=== PATIENT | male | born 1985 | race African-American/Black ===

== ENCOUNTER 2017-08-26 08:03 | Emergency (ER) | payer OTHER ==
[2017-08-26] MEDS ORDERED: ACETAMINOPHEN 325 MG TABLET PO ONE (09:42)
[2017-08-26] MEDS ORDERED: PENICILLIN V POTASSIUM 500 MG TABLET PO ONE (09:42)
[2017-08-26] MEDS ORDERED: IBUPROFEN 800 MG TABLET PO ONE (09:42)
--- NOTE | 2017-08-26 09:43 | ER Document Report ---
HPI - HPI Patient complains to provider of: congesiton Onset: Other - 3 days Quality of pain: Achy Pain Level: 4 Context: 32 yo male with sore throat, congestion, mild cough for 3 days. Some fever. No chest pain or sob, no n/v/d. Associated Symptoms: None Exacerbated by: Denies Relieved by: Denies - ROS ROS below otherwise negative: Yes Systems Reviewed and Negative: Yes All other systems reviewed and negative - REPRODUCTIVE Reproductive: DENIES: : Past Medical History - General Information source: Patient - Social History Smoking Status: Never Smoker Frequency of alcohol use: None Drug Abuse: None Lives with: Family Family History: Reviewed & Not Pertinent Neurological Medical History: Reports: Hx Migraine Surgical Hx: Negative - Immunizations Hx Diphtheria, Pertussis, Tetanus Vaccination: Yes Vertical Provider Document - CONSTITUTIONAL Agree With Documented VS: Yes Exam Limitations: No Limitations General Appearance: No Apparent Distress - INFECTION CONTROL TRAVEL OUTSIDE OF THE [place] IN LAST 30 DAYS: No - HEENT HEENT: Normocephalic, Pharyngeal Erythema. negative: Conjuctival Injection, Tympanic Membrane Red - NECK Neck: Supple. negative: Lymphadenopathy-Left, Lymphadenopathy-Right - RESPIRATORY Respiratory: Breath Sounds Normal, No Respiratory Distress O2 Sat by Pulse Oximetry: 97 - CARDIOVASCULAR Cardiovascular: Regular Rate, Regular Rhythm - GI/ABDOMEN Gastrointestinal: Abdomen Soft, Abdomen Non-Tender, No Organomegaly, Normal Bowel Sounds - BACK Back: Normal Inspection - MUSCULOSKELETAL/EXTREMETIES Musculoskeletal/Extremeties: MAEW, FROM - NEURO Level of Consciousness: Awake, Alert - DERM Integumentary: Warm, Dry, No Rash Course - Vital Signs Vital signs: Temp Pulse Resp BP Pulse Ox 99.3 F 92 14 129/75 H 97 08/26/17 08:08 08/26/17 08:08 08/26/17 08:08 08/26/17 08:08 08/26/17 08:08 Discharge - Discharge Clinical Impression: Exudative tonsillitis Condition: Good Disposition: HOME, SELF-CARE Instructions: Acetaminophen, Anti-Inflammatory Medication ([facility]), Penicillin V K ([facility]), Sore Throat ([facility]), Tonsillitis ([facility]) Additional Instructions: Rest Plenty of fluids Motrin and Tylenol for pain Finish the penicillin even though you feel better Return to the emergency room any concerns Prescriptions: Ibuprofen [Motrin 800 mg Tablet] 800 mg PO Q8HP PRN #30 tablet PRN Reason: Penicillin V Potassium [Penicillin Vk 500 mg Tablet] 500 mg PO QID #40 tablet
[2017-08-26 10:20] VITALS: BP 126/79
== END 2017-08-26 10:20 | disposition home or self-care (01) ==
LOC: ER 08:03
DX: J03.90 Acute tonsillitis, unspecified (principal); R09.81 Nasal congestion; J02.9 Acute pharyngitis, unspecified; R05 Cough; R50.9 Fever, unspecified
CPT/HCPCS: 87880; 99283

== ENCOUNTER 2018-09-12 20:59 | Emergency (ER) | payer OTHER ==
[2018-09-12] MEDS ORDERED: IBUPROFEN 600 MG TABLET PO ONE (22:03)
[2018-09-12] MEDS ORDERED: ACETAMINOPHEN 325 MG TABLET PO ONE (22:03)
--- NOTE | 2018-09-12 22:04 | ER Document Report ---
ED General - General Chief Complaint: Ankle Injury Stated Complaint: LEFT ANKLE PAIN Time Seen by Provider: 09/12/18 21:28 Notes: Patient is a 33-year-old male who present to the emerge department with a chief complaint of left ankle and foot pain. He was at [facility] where he rolled his ankle. He was able to walk after the incident, but during dinner he continued to have pain. He said he rolled his ankle medially. He has not taken any medication to help with his symptoms. He denies any prior medical history. TRAVEL OUTSIDE OF THE [place] IN LAST 30 DAYS: No - Related Data Allergies/Adverse Reactions: No Known Allergies Allergy (Verified 09/12/18 21:21) Past Medical History - Social History Smoking Status: Former Smoker Frequency of alcohol use: Social Family History: Reviewed & Not Pertinent Patient has suicidal ideation: No Patient has homicidal ideation: No Neurological Medical History: Reports: Hx Migraine Renal/ Medical History: Denies: Hx Peritoneal Dialysis - Immunizations Hx Diphtheria, Pertussis, Tetanus Vaccination: Yes Review of Systems - Review of Systems Notes: REVIEW OF SYSTEMS: CONSTITUTIONAL : Denies recent illness. Denies recent unintentional weight loss. Denies fever, chills, or sweats. EENT: Denies eye, ear, throat, or mouth pain, discharge, or symptoms. Denies nasal or sinus congestion. CARDIOVASCULAR: Denies chest pain. RESPIRATORY: Denies shortness of breath, cough, congestion, difficulty breathing, or wheezing. GASTROINTESTINAL: Denies nausea, vomiting, and diarrhea. Denies abdominal pain. Denies constipation. GENITOURINARY: Denies difficulty urinating, burning, blood in urine, urgency or frequency. MUSCULOSKELETAL: See HPI SKIN: Denies rash, itchiness, or lesions HEMATOLOGIC : Denies easy bruising or bleeding. LYMPHATIC: Denies swollen, painful, enlarged glands. NEUROLOGICAL: Denies no numbness or tingling denies weakness. Denies headache. Denies altered mental status. Denies alteration in speech. PSYCHIATRIC: Denies stress, anxiety, alteration in sleep patterns, or depression. All other systems reviewed and negative. Physical Exam - Vital signs Vitals: Temp Pulse Resp BP Pulse Ox 98.3 F 79 16 137/83 H 96 09/12/18 21:02 09/12/18 21:02 09/12/18 21:02 09/12/18 21:02 09/12/18 21:02 - Notes Notes: PHYSICAL EXAMINATION: GENERAL: Appears well, healthy, well-nourished, no acute distress. HEAD: Normocephalic, atraumatic. EYES: PERRL, conjunctiva normal, all extraocular movements intact, sclera nonicteric ENT: Moist mucous membranes. NECK: Supple, no noticeable swelling, redness, rash. Normal range of motion. LUNGS: Equal breath sounds bilaterally and clear to auscultation. No wheezes rales or rhonchi. CARDIOVASCULAR: S1-S2, regular rate, regular rhythm. Radial pulses 2+, normal. ABDOMEN: Normoactive bowel sounds. Soft, nontender, no guarding, no rebound tenderness, and no masses palpated. EXTREMITIES: Ecchymosis and edema noted to left lateral aspect of ankle. Mild decrease in range of motion to left ankle. All other extremities normal ROM. NEUROLOGICAL: Moves all extremities upon command. Strength 5/5 in all extremities. PSYCH: Normal mood, normal affect. SKIN: Warm, dry. No rash, lesions, ulcerations noted. Normal skin turgor. Course - Re-evaluation Re-evalutation: 09/12/18 23:07 Patient's x-rays are negative for fracture. He does have a calcaneus spur noted on x-ray. I discussed these findings with the patient. I have advised him that he needs to buy insoles for shoes or buy shoes that will properly support the arch of his foot. I do not aspect the patient has any tendon injuries at this time. He is able to wiggle his toes move around. He verbalized understanding. All discharge instructions were given to the patient. He verbalized understanding. He is stable for discharge. - Vital Signs Vital signs: Temp Pulse Resp BP Pulse Ox 97.9 F 80 16 130/81 H 97 09/12/18 23:20 09/12/18 23:20 09/12/18 23:20 09/12/18 23:20 09/12/18 23:20 Procedures - Immobilization Left Ankle Pre-Proc Neuro Vasc Exam: Normal Immobilizer type: Dave wrap, Post-op shoe Performed by: DEANNE Post-Proc Neuro Vasc Exam: Normal, Unchanged from pre-exam Alignment checked and good: Yes Discharge - Discharge Clinical Impression: Left ankle pain Qualifiers: Chronicity: acute Qualified Code(s): M25.572 - Pain in left ankle and joints of left foot Condition: Stable Disposition: HOME, SELF-CARE Instructions: Dave Wrap ([facility]), Soft Ankle Splint ([facility]), Sprained Ankle ([facility]) Additional Instructions: You were seen today in the emergency department for left ankle pain. Your x- rays show no fracture at this time. You may take Tylenol 1000 mg and Motrin 600 mg every 6 hours as needed for the pain. Please rest, place ice to the area 20 minutes on and 20 min off, wrap your ankle with an dave wrap and elevate your foot to help with swelling. You do have bone spurs, which are most likely the cause of your pain from before tonights incident. Please wear insoles in your shoes to help with your pain. Please follow-up with orthopedics in regards to your bone spur if shoe inserts are not helping. If you have worsening pain, or continue to have pain while on Motrin and Tylenol, please see your primary care provider or return to the emergency department.
--- NOTE | 2018-09-12 22:31 | RADIOLOGY REPORT (SQ) ---
EXAM DESCRIPTION: XR FOOT 3 OR MORE VIEWS COMPLETED DATE/TME: 09/12/2018 22:02 CLINICAL HISTORY: 33 years, Male, trauma COMPARISON: None. NUMBER OF VIEWS: 3 TECHNIQUE: 3 view left foot LIMITATIONS: None. FINDINGS: Negative for acute fracture or dislocation. Soft tissues are unremarkable. Tiny plantar heel spur. IMPRESSION: Tiny calcaneal spur. Remainder unremarkable copyright 2010 [employer]- All Rights Reserved
--- NOTE | 2018-09-12 22:31 | RADIOLOGY REPORT (SQ) ---
EXAM DESCRIPTION: XR ANKLE 3 OR MORE VIEWS COMPLETED DATE/TME: 09/12/2018 22:02 CLINICAL HISTORY: 33 years, Male, trauma COMPARISON: None. NUMBER OF VIEWS: 3 TECHNIQUE: 3 view left ankle LIMITATIONS: None. FINDINGS: Diffuse soft tissue swelling. Ankle mortise is intact. Negative for acute fracture or dislocation. IMPRESSION: Soft tissue swelling. No discrete fracture copyright 2010 [employer]- All Rights Reserved
[2018-09-12 23:28] VITALS: BP 130/81
== END 2018-09-12 23:35 | disposition home or self-care (01) ==
LOC: ER 20:59
DX: M25.572 Pain in left ankle and joints of left foot (principal); X50.0XXA Overexertion from strenuous movement or load, initial encounter; Y92.39 Other specified sports and athletic area as the place of occurrence of the external cause
CPT/HCPCS: 99283

== ENCOUNTER 2019-08-01 08:57 | Emergency (ER) | payer OTHER ==
[2019-08-01] MEDS ORDERED: NORMAL SALINE 1000 ML 1,000 ML IV ONE (09:24)
[2019-08-01] MEDS ORDERED: DIPHENHYDRAMINE HCL 50 MG/ML VIAL IV ONE (09:24)
[2019-08-01] MEDS ORDERED: PROCHLORPERAZINE EDISYLATE INJ 10 MG/2 ML VIAL IV ONE (09:24)
[2019-08-01] MEDS ORDERED: KETOROLAC TROMETHAMINE INJ/PF 30 MG/1 ML SDV IV ONE (09:24)
--- NOTE | 2019-08-01 10:58 | ER Document Report ---
Entered by SHERRY SUTHERLAND SCRIBE 08/01/19 0918 Acting as scribe for:CLEO GALEANO MD ED Headache - General Chief Complaint: Headache >24 hrs old Stated Complaint: HEADACHE Time Seen by Provider: 08/01/19 09:10 Mode of Arrival: Ambulatory Information source: Patient Notes: This 34-year-old male patient presents to the emergency department today with complaints of a headache. Patient has chronic migraine headaches, currently on topiramate. Patient states he has been battling headaches for the last 8 or 9 years however they have been becoming "all day every day" for the last month. Patient states the pain is always located on the right side of his head. Pertinent PMHx/PSHx: Migraine headaches, on topiramate - additional PMHx/PSHx not pertinent to this visit as recorded. TRAVEL OUTSIDE OF THE [place] IN LAST 30 DAYS: No - Related Data Allergies/Adverse Reactions: No Known Allergies Allergy (Verified 08/01/19 09:06) Past Medical History - General Information source: Patient - Social History Smoking Status: Former Smoker - quit in 2016 Cigarette use (# per day): No Frequency of alcohol use: None - "quit one month ago" Drug Abuse: None Occupation: retired Lives with: Family Family History: Reviewed & Not Pertinent Neurological Medical History: Reports: Hx Migraine Renal/ Medical History: Denies: Hx Peritoneal Dialysis - Immunizations Hx Diphtheria, Pertussis, Tetanus Vaccination: Yes Review of Systems - Review of Systems Constitutional: No symptoms reported EENT: No symptoms reported Cardiovascular: No symptoms reported Respiratory: No symptoms reported Gastrointestinal: No symptoms reported Genitourinary: No symptoms reported Male Genitourinary: No symptoms reported Musculoskeletal: No symptoms reported Skin: No symptoms reported Hematologic/Lymphatic: No symptoms reported Neurological/Psychological: See HPI, Headaches -: Yes All other systems reviewed and negative Physical Exam - Notes Notes: PHYSICAL EXAMINATION: GENERAL: Well-appearing, well-nourished and in no acute distress. HEAD: Atraumatic, normocephalic. The right occipital, parietal, and temporal muscles are very tender to palpate. EYES: Pupils equal round and reactive to light, extraocular movements intact, sclera anicteric, conjunctiva are normal. ENT: nares patent, oropharynx clear without exudates. Moist mucous membranes. NECK: Normal range of motion, supple without lymphadenopathy. The right posterior cervical muscles and nuchal ridge are very tender to palpate. LUNGS: Breath sounds clear to auscultation bilaterally and equal. No wheezes rales or rhonchi. HEART: Regular rate and rhythm without murmurs ABDOMEN: Soft, nontender, normoactive bowel sounds. No guarding, no rebound. No masses appreciated. EXTREMITIES: Normal range of motion, no pitting or edema. No cyanosis. NEUROLOGICAL: Cranial nerves grossly intact. Normal speech, normal gait. Normal sensory, motor, and reflex exams. PSYCH: Normal mood, normal affect. SKIN: Warm, Dry, normal turgor, no rashes or lesions noted. Course - Re-evaluation Re-evalutation: 08/01/19 10:59 Patient reports that the headache is much better at this time. Palpating the posterior cervical muscles and scalp muscles is not nearly as tender as it was previously. When I told the patient that I think this is more of a tension type headache than migraine, he agrees. Discharge - Discharge Clinical Impression: Headache Qualifiers: Headache type: tension-type Headache chronicity pattern: episodic headache Intractability: not intractable Qualified Code(s): G44.219 - Episodic tension- type headache, not intractable Condition: Stable Disposition: HOME, SELF-CARE Additional Instructions: Tension Headache Your problem has been diagnosed as muscle tension headache. This very common type of headache occurs because of tightness in the muscles of the head and neck. The cause may be neck or jaw joint problems, but most commonly the cause is emotional stress. The headache may last hours or days. The treatment of uncomplicated tension headaches is rest and pain medication. Antiinflammatory pain medications are recommended to decrease the irritability of the painful tissues. Cold packs, or warm packs are sometimes helpful. Anti-anxiety medication or narcotics are sometimes needed temporarily, but are best avoided in the long run. Your doctor has evaluated your headache problem, and finds no evidence of a serious health problem as a cause for the headache. If your headache becomes more severe, or if new symptoms develop (such as fever, stiff neck, vomiting, or decreasing alertness) you should be re-examined by the physician. Take medications as prescribed for your tension type headache. Take ibuprofen 600 mg every 8 hours for the next few days. Rest in a cool, dark, quiet room today. Follow-up with your primary care provider if not improving. RETURN TO THE EMERGENCY ROOM IF ANY NEW OR WORSENING SYMPTOMS. Prescriptions: Butalb/Acetaminophen/Caffeine [Fioricet (50-325-40 mg) Tablet] 1 - 2 tab PO Q4H #20 tab Scribe Attestation: 08/01/19 10:03 I personally performed the services described in the documentation, reviewed and edited the documentation which was dictated to the scribe in my presence, and it accurately records my words and actions. I personally performed the services described in the documentation, reviewed and edited the documentation which was dictated to the scribe in my presence, and it accurately records my words and actions.
[2019-08-01 11:18] VITALS: BP 152/99
== END 2019-08-01 11:26 | disposition home or self-care (01) ==
LOC: ER 08:57
DX: G44.219 Episodic tension-type headache, not intractable (principal); G43.909 Migraine, unspecified, not intractable, without status migrainosus; Z79.899 Other long term (current) drug therapy; Z87.891 Personal history of nicotine dependence
CPT/HCPCS: 99283; 96361; 96374; 96375; J1200; J1885; J0780; J7030

== ENCOUNTER 2019-08-03 18:58 | Emergency (ER) | payer OTHER ==
[2019-08-03] MEDS ORDERED: NORMAL SALINE 1000 ML 1,000 ML IV ONE (21:15)
[2019-08-03] MEDS ORDERED: KETOROLAC TROMETHAMINE INJ/PF 30 MG/1 ML SDV IV ONE (21:15)
[2019-08-03] MEDS ORDERED: DIAZEPAM INJ 10 MG/2 ML DISP.SYRIN IV ONE (21:15)
--- NOTE | 2019-08-03 21:17 | ER Document Report ---
ED Neck/Back Problem - General Chief Complaint: Neck Problem Stated Complaint: HEADACHE,NECK PAIN, NAUSEA Time Seen by Provider: 08/03/19 20:12 Mode of Arrival: Ambulatory Information source: Patient Notes: Otherwise healthy 34-year-old male presenting with right-sided head and neck pain. Patient reports pain in the back of his neck that radiates up through to his head and behind his eyes causing a headache. He denies any recent illness or fever. Denies any neck stiffness, light sensitivity or noise sensitivity. TRAVEL OUTSIDE OF THE [place] IN LAST 30 DAYS: No - Related Data Allergies/Adverse Reactions: No Known Allergies Allergy (Verified 08/03/19 19:55) Past Medical History - General Information source: Patient - Social History Smoking Status: Never Smoker Frequency of alcohol use: None Drug Abuse: None Family History: Reviewed & Not Pertinent Patient has suicidal ideation: No Patient has homicidal ideation: No Neurological Medical History: Reports: Hx Migraine Renal/ Medical History: Denies: Hx Peritoneal Dialysis - Immunizations Hx Diphtheria, Pertussis, Tetanus Vaccination: Yes Review of Systems - Review of Systems Constitutional: No symptoms reported EENT: See HPI Cardiovascular: No symptoms reported Respiratory: No symptoms reported Gastrointestinal: No symptoms reported Genitourinary: No symptoms reported Male Genitourinary: No symptoms reported Musculoskeletal: No symptoms reported Skin: No symptoms reported Hematologic/Lymphatic: No symptoms reported Neurological/Psychological: See HPI Physical Exam - Vital signs Vitals: Temp Pulse Resp BP Pulse Ox 98.4 F 86 18 151/87 H 98 08/03/19 19:02 08/03/19 19:02 08/03/19 19:02 08/03/19 19:02 08/03/19 19:02 - Notes Notes: PHYSICAL EXAMINATION: GENERAL: Well-appearing, well-nourished and in no acute distress. HEAD: Atraumatic, normocephalic. EYES: Pupils equal round and reactive to light, extraocular movements intact, sclera anicteric, conjunctiva are normal. ENT: Nares patent, oropharynx clear without exudates. Moist mucous membranes. NECK: Normal range of motion, supple without lymphadenopathy, no nuchal rigidity noted, increased pain when turning neck towards the left. Muscle spasms noted to right posterior/lateral neck. LUNGS: Breath sounds clear to auscultation bilaterally and equal. No wheezes rales or rhonchi. HEART: Regular rate and rhythm without murmurs ABDOMEN: Soft, nontender, nondistended abdomen. No guarding, no rebound. No masses appreciated. Musculoskeletal: Normal range of motion, no pitting or edema. No cyanosis. NEUROLOGICAL: Cranial nerves grossly intact. Normal speech, normal gait. Normal sensory, motor exams PSYCH: Normal mood, normal affect. SKIN: Warm, Dry, normal turgor, no rashes or lesions noted. Course - Re-evaluation Re-evalutation: Head and neck CTs obtained were negative for any acute findings. Patient did have symptomatic relief of his pain after administration of medications here in the emergency department. Likely torticolllis versus cervicogenic headache. Patient will be discharged home with pain medication and muscle relaxers. Encourage close follow-up with PCP or return to the ED if not improving. Strict ED return precautions were discussed to include development of fever or neck stiffness. Patient and family member at bedside verbalized understanding and agreement with plan. The patient's emergency department workup and current diagnosis were explained to the patient and or family. Follow-up instructions were provided. Medications if prescribed were discussed. Instructions for when to return to the emergency department including specific worrisome symptoms were discussed with the patient and/or family. - Vital Signs Vital signs: Temp Pulse Resp BP Pulse Ox 98.0 F 93 16 124/73 99 08/03/19 23:44 08/03/19 23:44 08/03/19 23:44 08/03/19 23:44 08/03/19 23:44 Discharge - Discharge Clinical Impression: Torticollis, Cervicogenic headache Condition: Stable Disposition: HOME, SELF-CARE Additional Instructions: Torticollis You have torticollis, often called "wry neck." This is due to spasm of neck muscles -- locking the neck into a crooked position. Many different problems can lead to torticollis, such as a minor injury, sleeping with tension on the neck, or inflammation in the glands of the neck. Torticollis is usually treated with heat to relax the neck muscles, but the physician may recommend cold packs if a minor injury is suspected as the cause. Muscle relaxing and antiinflammatory medicine are often prescribed. You may need a neck collar to support your head. Improvement is usually rapid. Usually, the neck can be moved fully within two days, although some pain may persist for a few weeks. Call the doctor at once if you worsen, or if you develop high fever, severe headache, numbness or weakness, or other alarming symptoms. Your CAT scans were normal. I believe your head and neck pain are coming from a muscle spasm in your neck. This is called torticollis or cervicogenic headache. Please take the muscle relaxer as prescribed. Take ibuprofen 800 mg every 8 hours. Use the narcotic pain medication for severe pain only. Follow-up with your primary care provider if not improving over the next 3 to 5 days. Return to the emergency department with any new or worsening symptoms or development of fever accompanied by neck stiffness. Prescriptions: Baclofen [Baclofen 10 mg Tablet] 1 - 2 tab PO Q8H PRN #30 tablet PRN Reason: Muscle Spasms Forms: Return to Work
--- NOTE | 2019-08-03 22:58 | RADIOLOGY REPORT (SQ) ---
EXAM DESCRIPTION: CT HEAD WITHOUT IV CONTRAST COMPLETED DATE/TME: 08/03/2019 21:15 CLINICAL HISTORY: 34 years, Male, headache, neck pain R side COMPARISON: 02/21/2014 CT TECHNIQUE: 207 Images stored on PACS. All CT scanners at this facility use dose modulation, iterative reconstruction, and/or weight based dosing when appropriate to reduce radiation dose to as low as reasonably achievable (ALARA). [facility]: Dose Right [facility]: CareDose [facility]: Dose Right [facility]: Teradose 4D [facility]: [employer] LIMITATIONS: None. FINDINGS: The globes are intact. Paranasal sinuses and mastoid air cells are unremarkable. No displaced or depressed skull fracture. No intra or extra-axial hemorrhage. CT is limited for evaluation of acute infarct. No CT evidence for large or territorial acute infarct. No mass. No midline shift IMPRESSION: Negative exam TECHNICAL DOCUMENTATION: Quality ID # 436: Final reports with documentation of one or more dose reduction techniques (e.g., Automated exposure control, adjustment of the mA and/or kV according to patient size, use of iterative reconstruction technique) copyright 2011 [employer]- All Rights Reserved
--- NOTE | 2019-08-03 23:06 | RADIOLOGY REPORT (SQ) ---
EXAM DESCRIPTION: CT CERVICAL SPINE WITHOUT IV CONTRAST COMPLETED DATE/TME: 08/03/2019 21:15 CLINICAL HISTORY: 34 years, Male, headache, neck pain R side COMPARISON: None. TECHNIQUE: 276 Images stored on PACS. All CT scanners at this facility use dose modulation, iterative reconstruction, and/or weight based dosing when appropriate to reduce radiation dose to as low as reasonably achievable (ALARA). [facility]: Dose Right [facility]: CareDose [facility]: Dose Right [facility]: Teradose 4D [facility]: [employer] LIMITATIONS: None. FINDINGS: Vertebral body height and alignment is preserved. Evaluation of spinal canal contents limited due to CT technique. The disc spaces are maintained. Extraspinal anatomic structures are unremarkable IMPRESSION: Negative exam TECHNICAL DOCUMENTATION: Quality ID # 436: Final reports with documentation of one or more dose reduction techniques (e.g., Automated exposure control, adjustment of the mA and/or kV according to patient size, use of iterative reconstruction technique) copyright 2011 [employer]- All Rights Reserved
[2019-08-03] MEDS ORDERED: HYDROCODONE/ACETAMINOPHEN 5-325 MG (6 TAB/ER DISP) PO PRN (23:29)
[2019-08-03] MEDS ORDERED: CYCLOBENZAPRINE HCL 10 MG TABLET PO ONE (23:30)
[2019-08-03 23:47] VITALS: BP 124/73
== END 2019-08-03 23:44 | disposition home or self-care (01) ==
LOC: ER 18:58
DX: M43.6 Torticollis (principal); M62.838 Other muscle spasm; M54.2 Cervicalgia; R51 Headache
CPT/HCPCS: 99283; 96361; 96374; 96375; 70450; 72125; J3360; J1885; J7030